=== PATIENT | female | born 1965 | race Caucasian/White ===

== ENCOUNTER → 2017-07-04 | Outpatient (CLI) | payer OTHER ==
--- NOTE | 2017-07-04 13:52 | RAD ---
Indication screening. Family history of osteoporosis. Lumbar spine and right hip were evaluated. No prior bone density analysis is available. In the lumbar spine the average bone mild density is approximately 1.08 g/cc. The T score of -0.8 is normal. In the right hip the average bone mild density is approximately 1.03 g/cc. The T score is of approximately 0.2 is normal. IMPRESSION: Normal bone mineral density in the right hip and lumbar spine
== END | disposition home or self-care (01) ==
LOC: DXRAD 12:45
PROVIDERS: ATTEND Nurse Practitioner Family
DX: Z13.820 Encounter for screening for osteoporosis (principal); Z82.62 Family history of osteoporosis
CPT/HCPCS: 77080